=== PATIENT | male | born 1985 | race Caucasian/White ===

== ENCOUNTER 2017-04-27 22:40 | Emergency (ER) | payer MEDICAID ==
[~2017-04-27] VITALS: Ht 190.5 cm; Wt 158.8 kg
[2017-04-27 23:38] LABS: Basophils # (auto) 0.1 uL; Basophils % (auto) 0.8 % (0.0-2.0); Eosinophils # (auto) 0.1 uL; Hematocrit 54.8 % (41.0-53.0); Hemoglobin 18.3 g/dL (13.5-17.5); Lymphocytes # (auto) 3.6 uL; Lymphocytes % (auto) 32.6 % (10.0-50.0); Mean Corpuscular Hgb Conc. 33.4 g/dL (32.0-36.0); Mean Corpuscular Volume 92.9 fL (80.0-100.0); Mean Platelet Volume 7.8 fL (7.4-10.4); Monocytes % (auto) 9.3 % (0.0-12.0); Neutrophils # (auto) 6.1 uL; Neutrophils % (auto) 56.3 % (37.0-80.0); Platelet Count (auto) 261 10^3/uL (140-450); Red Cell Distribution Width 12.8 % (11.6-16.0); White Blood Cell 10.9 10^3/uL (4.4-10.8)
[2017-04-27 23:48] LABS: Albumin 4.2 g/dL (3.4-5.0); BUN/Creatinine Ratio 9.3; Calcium 8.6 mg/dL (8.5-10.1); Magnesium 2.4 mg/dL (1.6-2.6); Potassium 3.3 mmol/L (3.5-5.1)
[2017-04-27 23:51] LABS: Bilirubin, Total 0.3 mg/dL (0.2-1.0); Salicylate 2.9 mg/dL (2.8-20.0); Total Protein 8.6 g/dL (6.4-8.2)
[2017-04-27 23:58] LABS: Acetaminophen < 2.0 ug/mL (10-30)
[2017-04-28] MEDS ORDERED: diphenhdrAMINE HCL 50 MG/1 ML VL IV ONE (01:00)
[2017-04-28] MEDS ORDERED: LORazepam 2MG/ML-1ML VIAL IM ONE (01:00)
[2017-04-28] MEDS ORDERED: HALOPERIDOL LACTATE 5 MG/ML INJ VIAL IM ONE (01:00)
[2017-04-28 01:30] LABS: Urine Bilirubin Negative (Negative); Urine Blood Negative /uL (Negative); Urine Glucose Normal (Normal); Urine Ketone Negative (Negative); Urine Nitrite Negative (Negative); Urine RBC <1 /hpf (0 - 3); Urine Urobilinogen Normal (Negative); Urine pH 5.5 (5.0-8.0)
[2017-04-28 01:31] LABS: Urine Color Straw (Yellow)
[2017-04-28 02:58] VITALS: BP 160/57
[2017-04-28] MEDS ORDERED: MVI in SODIUM CHLORIDE 0.9% 1,010 ML IV ONE (03:05)
[2017-04-28] MEDS ORDERED: THIAMINE HCL 100 MG/ML 2ML VIAL IV ONE (03:15)
[2017-04-28] MEDS ORDERED: MAGNESIUM SULFATE 1GM/100ML 100 ML IV SCH (03:15)
== END 2017-04-28 04:37 | disposition left against medical advice (07) ==
LOC: ER 22:40
DX: F10.129 Alcohol abuse with intoxication, unspecified (principal); Y90.8 Blood alcohol level of 240 mg/100 ml or more; R41.82 Altered mental status, unspecified; F99 Mental disorder, not otherwise specified
CPT/HCPCS: 36415; 51702; 80053; 80307; 80320; 80329; 81001; 83735; 85025; 93005; 96372; 99285; J1200; J1630; J2060

== ENCOUNTER → 2017-08-14 | Outpatient (CLI) | payer MEDICAID ==
[~2017-08-14] VITALS: Ht 195.6 cm; Wt 145.1 kg
== END | disposition home or self-care (01) ==
LOC: Rad HDHVI 10:25
PROVIDERS: ATTEND Internal Medicine Cardiovascular Disease
DX: R07.89 Other chest pain (principal); R00.2 Palpitations; G47.30 Sleep apnea, unspecified
CPT/HCPCS: 78452; 93017; 96374; A9500

== ENCOUNTER → 2017-08-18 | Outpatient (CLI) | payer MEDICAID | END | disposition home or self-care (01) | LOC: Rad HDHVI 15:06 | PROVIDERS: ATTEND Internal Medicine Cardiovascular Disease | DX: R07.89 Other chest pain (principal); R00.2 Palpitations | CPT/HCPCS: 93306 ==

== ENCOUNTER 2017-08-20 21:47 | Emergency (ER) | payer MEDICAID ==
[~2017-08-20] VITALS: Ht 195.6 cm; Wt 145.1 kg
[2017-08-20 21:57] VITALS: BP 140/92
[2017-08-20 22:30] LABS: Basophils # (auto) 0.1 uL; Basophils % (auto) 1.5 % (0.0-2.0); Eosinophils # (auto) 0.1 uL; Eosinophils % (auto) 1.2 % (0.0-7.0); Hematocrit 48.5 % (41.0-53.0); Hemoglobin 17.2 g/dL (13.5-17.5); Lymphocytes # (auto) 2.8 uL; Lymphocytes % (auto) 30.1 % (10.0-50.0); Mean Corpuscular Hemoglobin 32.9 pg (28.0-32.0); Mean Corpuscular Hgb Conc. 35.4 g/dL (32.0-36.0); Mean Corpuscular Volume 92.7 fL (80.0-100.0); Mean Platelet Volume 7.2 fL (6.9-10.8); Monocytes % (auto) 10.9 % (0.0-12.0); Neutrophils # (auto) 5.3 uL; Neutrophils % (auto) 56.3 % (37.0-80.0); Nucleated Red Blood Cells % 0.1 %; Platelet Count (auto) 237 10^3/uL (140-450); Red Cell Distribution Width 13.2 % (11.8-14.3); White Blood Cell 9.4 10^3/uL (4.4-10.8)
[2017-08-20] MEDS ORDERED: LORazepam 0.5 MG TAB PO ONE (22:30)
[2017-08-20 22:43] LABS: Albumin 4.1 g/dL (3.4-5.0); Anion Gap 10 (5-15); Aspartate Aminotransferase 12 U/L (15-37); BUN/Creatinine Ratio 9.2; Blood Urea Nitrogen 10 mg/dL (7-18); Calcium 8.9 mg/dL (8.5-10.1); Carbon Dioxide 24 mmol/L (21-32); Chloride 104 mmol/L (98-107); GFR African American 101 mL/min; GFR Non-African American 84 mL/min; Glucose 110 mg/dL (74-106); Potassium 3.4 mmol/L (3.5-5.1); Sodium 138 mmol/L (136-145)
[2017-08-20 22:47] LABS: Alkaline Phosphatase 57 U/L (45-117); Bilirubin, Total 0.4 mg/dL (0.2-1.0); Total Protein 8.1 g/dL (6.4-8.2)
[2017-08-20 23:01] LABS: B-Type Natriuretic Peptide 1.4 pg/mL (0-100)
[2017-08-20 23:02] LABS: Temperature: 23.3 C (20.0-25.0)
== END 2017-08-21 00:47 | disposition home or self-care (01) ==
LOC: EDBD 21:47 → ER 21:49
DX: F41.9 Anxiety disorder, unspecified (principal); F25.9 Schizoaffective disorder, unspecified; F31.9 Bipolar disorder, unspecified; F17.210 Nicotine dependence, cigarettes, uncomplicated
CPT/HCPCS: 36415; 71010; 80053; 83735; 83880; 84443; 84484; 85025; 93005

== ENCOUNTER 2017-08-24 22:23 | Emergency (ER) | payer MEDICAID ==
[~2017-08-24] VITALS: Ht 195.6 cm; Wt 145.1 kg
[2017-08-24] MEDS ORDERED: ACTIVATED CHARCOAL 50 GM/240 ML SOL PO ONE (22:45)
[2017-08-24 22:59] LABS: Urine RBC None Seen /hpf (0 - 3)
[2017-08-24] MEDS ORDERED: TEMAZEPAM 15 MG CAP PO ONE (23:30)
[2017-08-24 23:33] LABS: Urine Bilirubin Negative (Negative); Urine Blood Negative /uL (Negative); Urine Color Colorless (Yellow); Urine Glucose Normal (Normal); Urine Ketone 1+ (Negative); Urine Nitrite Negative (Negative); Urine Urobilinogen Normal (Negative); Urine pH 5.5 (5.0-8.0)
[2017-08-24 23:38] LABS: Acetaminophen 7.6 ug/mL (10-30); Albumin 4.4 g/dL (3.4-5.0); Alkaline Phosphatase 59 U/L (45-117); Anion Gap 11 (5-15); Aspartate Aminotransferase 16 U/L (15-37); BUN/Creatinine Ratio 6.7; Bilirubin, Total 0.4 mg/dL (0.2-1.0); Blood Urea Nitrogen 6 mg/dL (7-18); Calcium 9.1 mg/dL (8.5-10.1); Carbon Dioxide 26 mmol/L (21-32); Chloride 100 mmol/L (98-107); GFR African American 127 mL/min; GFR Non-African American 105 mL/min; Glucose 105 mg/dL (74-106); Magnesium 2.6 mg/dL (1.6-2.6); Potassium 3.4 mmol/L (3.5-5.1); Salicylate 10.4 mg/dL (2.8-20.0); Sodium 137 mmol/L (136-145); Total Protein 8.2 g/dL (6.4-8.2)
[2017-08-24 23:47] LABS: Basophils # (auto) 0.1 uL; Basophils % (auto) 0.8 % (0.0-2.0); Eosinophils # (auto) 0.1 uL; Eosinophils % (auto) 1.1 % (0.0-7.0); Hematocrit 49.7 % (41.0-53.0); Hemoglobin 17.3 g/dL (13.5-17.5); Lymphocytes # (auto) 2.4 uL; Lymphocytes % (auto) 28.6 % (10.0-50.0); Mean Corpuscular Hemoglobin 31.7 pg (28.0-32.0); Mean Corpuscular Hgb Conc. 34.8 g/dL (32.0-36.0); Mean Corpuscular Volume 91.1 fL (80.0-100.0); Mean Platelet Volume 7.5 fL (6.9-10.8); Monocytes # (auto) 1.1 uL; Monocytes % (auto) 12.4 % (0.0-12.0); Neutrophils # (auto) 4.9 uL; Neutrophils % (auto) 57.1 % (37.0-80.0); Platelet Count (auto) 240 10^3/uL (140-450); White Blood Cell 8.6 10^3/uL (4.4-10.8)
[2017-08-25 00:58] VITALS: BP 141/91
[2017-08-25] MEDS ORDERED: LORazepam 2MG/ML-1ML VIAL IV ONE (02:30)
== END 2017-08-25 04:32 | disposition short-term general hospital (02) ==
LOC: EDBD 22:23 → ER 22:29
DX: T14.91XA Suicide attempt, initial encounter (principal); R45.6 Violent behavior; F41.9 Anxiety disorder, unspecified; F31.89 Other bipolar disorder; F29 Unspecified psychosis not due to a substance or known physiological condition
CPT/HCPCS: 36415; 80053; 80307; 80320; 80329; 81001; 83735; 85025

== ENCOUNTER 2017-08-25 11:29 | Emergency (ER) | payer MEDICAID ==
[~2017-08-25] VITALS: Ht 195.6 cm; Wt 113.4 kg
[2017-08-25] MEDS ORDERED: KETOROLAC TROMETH 30 MG/ML 1ML VIAL IV ONE (11:45)
[2017-08-25 12:08] VITALS: BP 167/98
== END 2017-08-25 12:32 | disposition left against medical advice (07) ==
LOC: ER 11:29 → EDBD 11:29 → ER 12:32
DX: R07.89 Other chest pain (principal); F17.210 Nicotine dependence, cigarettes, uncomplicated; Z53.29 Procedure and treatment not carried out because of patient's decision for other reasons
CPT/HCPCS: 96374; 99284; J1885

== ENCOUNTER → 2017-10-22 | Outpatient (CLI) | payer MEDICAID ==
[~2017-10-22] MED LIST: IOHEXOL 350 MG/ML 100ML IJ ONE
[2017-10-22 10:20] VITALS: BP 124/66
[2017-10-22 17:00] VITALS: BP 125/70
== END | disposition home or self-care (01) ==
LOC: Rad HDHVI 09:39
PROVIDERS: ATTEND Internal Medicine Cardiovascular Disease
DX: R07.9 Chest pain, unspecified (principal)
CPT/HCPCS: 71275; 82565; 96374; G0463; Q9967